=== PATIENT | female | born 1985 | race Caucasian/White ===

== ENCOUNTER 2016-09-27 09:24 | Emergency (ER) | payer BC ==
[2016-09-27] MEDS ORDERED: Sodium Chloride 0.9% 5 ML Syringe FLUSH PRN (09:48)
[2016-09-27] MEDS ORDERED: Sodium Chloride 0.9% 1,000 ML IV ONE (09:48)
--- NOTE | 2016-09-27 10:04 | EDM.PDOC ---
ED HPI GENERAL MEDICAL PROBLEM - General Chief Complaint: PIN PUSHER Problem Stated Complaint: CRAMPING,NAUSEA,DIARRHEA Time Seen by Provider: 09/27/16 09:48 Source of Information: Reports: Patient History Limitations: Reports: No Limitations - History of Present Illness INITIAL COMMENTS - FREE TEXT/NARRATIVE: PT IS 26 WEEKS AND DEVELOPED CRAMPING IN UPPER ABD AT 0600 TODAY. HAS HAD NAUSEA AND DIARRHEA INTERMITTENTLY DURING BUT NO COMPLICATIONS. OB /[employer] IN [place]. DENIES FEVER, TRAUMA, VAG BLEED OR FLUID, BLOOD IN STOOL, OR DYSURIA Onset: Today Onset Date: 09/27/16 Onset Time: 06:00 Location: Reports: Abdomen Quality: Reports: Other (cramping) Improves with: Reports: None Worsens with: Reports: None Associated Symptoms: Reports: Nausea/Vomiting - Related Data Allergies Allergy/AdvReac Type Severity Reaction Status Date / Time No Known Drug Allergies Allergy none Verified 09/27/16 09:49 Home Meds: Home Meds Fish Oil/Thompson-3 Fatty Acids [Fish Oil] 1,000 mg PO DAILY 09/27/16 [History] Lactobacillus Acidophilus [Probiotic] 1 each PO DAILY 09/27/16 [History] Vit W-Ca,Fe,FA(<1 mg) [ Vitamins] 1 each PO DAILY 09/27/16 [ History] Past Medical History HEENT History: Reports: Impaired Vision Genitourinary History: Reports: Other (See Below) Other Genitourinary History: concentrated urine, dehydration Psychiatric History: Reports: Anxiety - Past Surgical History Musculoskeletal Surgical History: Reports: Arthroscopic Knee Social & Family History - Tobacco Use Smoking Status *Q: Never Smoker Second Hand Smoke Exposure: No - Caffeine Use Caffeine Use: Reports: None - Recreational Drug Use Recreational Drug Use: No ED ROS GENERAL - Review of Systems Review Of Systems: ROS reveals no pertinent complaints other than HPI. Constitutional: Reports: No Symptoms HEENT: Reports: No Symptoms Respiratory: Reports: No Symptoms Cardiovascular: Reports: No Symptoms Endocrine: Reports: No Symptoms GI/Abdominal: Reports: Abdominal Pain, Diarrhea, Nausea : Reports: No Symptoms Musculoskeletal: Reports: No Symptoms Skin: Reports: No Symptoms Neurological: Reports: No Symptoms Psychiatric: Reports: No Symptoms Hematologic/Lymphatic: Reports: No Symptoms Immunologic: Reports: No Symptoms ED EXAM - Physical Exam Exam: See Below Exam Limited By: No Limitations General Appearance: Alert, WD/WN, No Apparent Distress Throat/Mouth: Normal Inspection, Normal Oropharynx, No Airway Compromise Neck: Normal Inspection Respiratory/Chest: No Respiratory Distress, Lungs Clear, Normal Breath Sounds, No Accessory Muscle Use, Chest Non-Tender Cardiovascular: Regular Rate, Rhythm, No Murmur GI/Abdominal: Normal Bowel Sounds, Gravid Uterus Heart Tones: Present Heart Tones per Min: 140 Movement: Active Back Exam: Normal Inspection. No: CVA Tenderness (L), CVA Tenderness (R) Extremities: Normal Inspection, No Pedal Edema Neurological: Alert, Oriented, Normal Cognition Psychiatric: Normal Affect, Normal Mood Skin Exam: Warm, Dry, Intact, Normal Color, No Rash Lymphatic: No Adenopathy Course - Orders/Labs/Meds Orders: Active Orders 24 hr Category Date Time Status Peripheral IV Care [RC] . DIRECTED Care 09/27/16 09:48 Ordered COMPREHENSIVE METABOLIC PN,CMP [CHEM] Stat Lab 09/27/16 09:37 Received HCG QUANTITATIVE,SERUM [CHEM] Stat Lab 09/27/16 09:37 Received LIPASE [CHEM] Stat Lab 09/27/16 09:48 Ordered Sodium Chloride 0.9% @ 999 MLS/HR (1000ml) Med 09/27/16 09:48 Ordered Sodium Chloride 0.9% [Normal Saline] 1,000 ml IV .BOLUS Sodium Chloride 0.9% [Syrex Flush] Med 09/27/16 09:48 Ordered 5 ml FLUSH Q8HR PRN Peripheral IV Insertion Adult [OM.PC] Routine Oth 09/27/16 09:48 Ordered Medication Orders Sodium Chloride (Normal Saline) 1,000 mls @ 999 mls/hr IV .BOLUS ONE Stop: 09/27/16 10:48 Sodium Chloride (Syrex Flush) 5 ml FLUSH Q8HR PRN PRN Reason: Keep Vein Open Labs: Laboratory Tests 09/27/16 Range/Units 09:37 WBC 10.9 H (5.0-10.0) 10^3/uL RBC 4.06 (3.80-5.50) 10^6/uL Hgb 11.9 L (12.0-16.0) g/dL Hct 34.6 L (37.0-47.0) % MCV 85.4 (82.0-92.0) fL MCH 29.2 (27.0-31.0) pg MCHC 34.2 (32.0-36.0) g/dL RDW 14.4 (11.5-14.5) % Plt Count 233 (150-300) 10^3/uL MPV 6.6 L (7.4-10.4) fL Neut % (Auto) 82.0 H (50.0-70.0) % Lymph % (Auto) 12.7 L (20.0-40.0) % Kimball % (Auto) 3.9 (2.0-8.0) % Eos % (Auto) 0.9 L (1.0-3.0) % Baso % (Auto) 0.5 (0.0-1.0) % Neut # (Auto) 8.9 H (2.5-7.0) 10^3/uL Lymph # (Auto) 1.4 (1.0-4.0) 10^3/uL Kimball # (Auto) 0.4 (0.1-0.8) 10^3/uL Eos # (Auto) 0.1 (0.1-0.3) 10^3/uL Baso # (Auto) 0.1 (0.0-0.1) 10^3/uL Meds: Medications Generic Name Dose Route Start Last Admin Trade Name Freq PRN Reason Stop Dose Admin Sodium Chloride 1,000 mls @ 999 mls/hr 09/27/16 09:48 Normal Saline IV 09/27/16 10:48 .BOLUS ONE Sodium Chloride 5 ml 09/27/16 09:48 Syrex Flush FLUSH Q8HR PRN Keep Vein Open - Re-Assessments/Exams Free Text/Narrative Re-Assessment/Exam: 09/27/16 10:32 PT AFEBRILE, NONTOXIC APPEARING, CONTRACTIONS RESOLVED, VSS, FHT 130-140 Departure - Departure Time of Disposition: 10:31 Disposition: Home, Self-Care 01 Condition: Good Clinical Impression: Billy Serrano contractions - Discharge Information Instructions: [place] Serrano Contractions, Third Trimester of Additional Instructions: FOLLOW UP WITH PIN PUSHER IN NEXT 2-3 DAYS. RETURN TO ER SOONER IF SYMPTOMS CONTINUE - My Orders Last 24 Hours: My Active Orders 09/27/16 09:37 COMPREHENSIVE METABOLIC PN,CMP [CHEM] Stat HCG QUANTITATIVE,SERUM [CHEM] Stat 09/27/16 09:48 Peripheral IV Care [RC] . DIRECTED LIPASE [CHEM] Stat Sodium Chloride 0.9% @ 999 MLS/HR (1000ml) Sodium Chloride 0.9% [Normal Saline] 1,000 ml IV .BOLUS Sodium Chloride 0.9% [Syrex Flush] 5 ml FLUSH Q8HR PRN Peripheral IV Insertion Adult [OM.PC] Routine - Assessment/Plan Last 24 Hours: My Active Orders 09/27/16 09:37 COMPREHENSIVE METABOLIC PN,CMP [CHEM] Stat HCG QUANTITATIVE,SERUM [CHEM] Stat 09/27/16 09:48 Peripheral IV Care [RC] . DIRECTED LIPASE [CHEM] Stat Sodium Chloride 0.9% @ 999 MLS/HR (1000ml) Sodium Chloride 0.9% [Normal Saline] 1,000 ml IV .BOLUS Sodium Chloride 0.9% [Syrex Flush] 5 ml FLUSH Q8HR PRN Peripheral IV Insertion Adult [OM.PC] Routine Assessment:: Plan: F/U WITH PIN PUSHER
[2016-09-27 10:34] LABS: CHLORIDE,CL 105 mmol/L (98-115); SODIUM,NA 137 mmol/L (136-145)
[2016-09-27 10:36] VITALS: BP 102/66
== END 2016-09-27 11:10 | disposition home or self-care (01) ==
LOC: KA.ED 09:24
DX: O47.02 False labor before 37 completed weeks of gestation, second trimester (principal); Z98.890 Other specified postprocedural states; Z3A.26 26 weeks gestation of pregnancy
CPT/HCPCS: 36415; 80053; 83690; 84702; 85025; 96360; 99284; J7030

== ENCOUNTER 2017-04-23 10:09 | Day surgery (SDC) | payer BC ==
[~2017-04-23 10:09] MED LIST: Lactated Ringers 1,000 ML IV SCH; Sodium Chloride 0.9% 5 ML Syringe FLUSH PRN
[2017-04-23] MEDS ORDERED: Midazolam 1 MG/ML 2 ML SDV ONE (10:27)
[2017-04-23] MEDS ORDERED: fentaNYL 100 MCG/2 ML SDV ONE (10:27)
[2017-04-23] MEDS ORDERED: Propofol 200 MG/20 ML SDV ONE ×2 (10:27→11:12)
--- NOTE | 2017-04-23 10:38 | PCM.PN ---
- General Info Date of Service: 04/23/17 - Review of Systems Systems Review Comment:: 31 y/o female with 3 month history of unexplained diarrhea referred for colonoscopy. She is medically stable to proceed with no recent changes from her h and p. I have discussed the proposed colonoscopy with the patient. Risks such as but not limited to bleeding and GI injury reviewed and she agrees to proceed. - Patient Data Med Orders - Current: Current Medications Lactated Ringer's (Ringers, Lactated) 1,000 mls @ 50 mls/hr IV ASDIRECTED ANDREA Sodium Chloride (Syrex Flush) 5 ml FLUSH Q8HR PRN PRN Reason: Keep Vein Open Discontinued Medications Fentanyl (Sublimaze) Confirm Administered Dose 100 mcg .ROUTE .STK-MED ONE Stop: 04/23/17 10:28 Midazolam HCl (Versed 1 Mg/Ml) Confirm Administered Dose 2 mg .ROUTE .STK-MED ONE Stop: 04/23/17 10:28 Propofol (Diprivan 20 Ml) Confirm Administered Dose 200 mg .ROUTE .STK-MED ONE Stop: 04/23/17 10:28 - Problem List Review Problem List Initiated/Reviewed/Updated: Yes - My Orders Last 24 Hours: My Active Orders 04/22/17 16:56 Resuscitation Status Routine 04/23/17 10:00 Patient to Empty Bladder [RC] ASDIRECTED Peripheral IV Care [RC] . DIRECTED Verify Patient Consent Obtain [RC] ASDIRECTED HCG QUALITATIVE,URINE [URCHEM] Routine Lactated Ringers [Ringers, Lactated] 1,000 ml IV ASDIRECTED Sodium Chloride 0.9% [Syrex Flush] 5 ml FLUSH Q8HR PRN Peripheral IV Insertion Adult [OM.PC] Routine 04/23/17 Breakfast Nothing Per Oral Diet [DIET] - Assessment Assessment:: Diarrhea - Plan Plan:: Colonoscopy.
[2017-04-23 10:42] VITALS: BP 99/70
[2017-04-23] MEDS ORDERED: Midazolam 1 MG/ML 2 ML SDV IV ONE (10:50)
[2017-04-23] MEDS ORDERED: fentaNYL 100 MCG/2 ML SDV IV ONE (10:50)
[2017-04-23] MEDS ORDERED: Propofol 200 MG/20 ML SDV IV ONE (10:50)
--- NOTE | 2017-04-23 11:36 | PCM.OPNOTE ---
- General Post-Op/Procedure Note Date of Surgery/Procedure: 04/23/17 Operative Procedure(s): Colonoscopy with Biopsy Findings: Normal appearing colon and terminal ileum Pre Op Diagnosis: Diarrhea Post-Op Diagnosis: normal colon Anesthesia Technique: MAC Primary Surgeon: Rl Phillips Pathology: biopsies of terminal ileum and colon Output, Urine Amount: 0 EBL in mLs: 3 Complications: None Condition: Good
--- NOTE | 2017-04-23 20:43 | PROC ---
DATE OF PROCEDURE: PHYSICIAN: Rl Phillips MD PRE-PROCEDURE DIAGNOSIS: Diarrhea. POST-PROCEDURE DIAGNOSIS: Diarrhea and normal appearing colon. PROCEDURE PERFORMED: Colonoscopy with biopsy. INDICATIONS FOR SURGERY: This 31-year-old female has a three-month history of unexplained diarrhea. Diagnostic colonoscopy is planned. FINDINGS: The patient's colon and rectum appeared normal. There is no visible signs of inflammation or other mucosal lesions seen. The patient's terminal ilium also appears normal without any inflammation or narrowing. DESCRIPTION OF PROCEDURE: The patient was taken to the operating room. She was given intravenous sedation and with her in the left lateral decubitus position, digital rectal exam was performed showing no rectal masses. The Olympus colonoscope was inserted into the rectum. Retroflexed examination of the rectal canal was performed. The scope was then carefully advanced under direct visualization through the entire length of the colon until the cecum was reached. Cecal acquisition was confirmed by noting the normal internal cecal anatomy including the appendiceal orifice and ileocecal valve. The light was also noted to transilluminate the abdominal wall in the right lower quadrant. The ileocecal valve was cannulated and the terminal ilium examined. Random biopsies of the terminal ilium were taken to rule out celiac disease. The scope was withdrawn back into the colon and then slowly withdrawn allowing re- examination of the colonic segments. Random biopsies of the colonic mucosa were taken as the scope was withdrawn. Once the examination had been completed and with no sign of any complications, the scope was removed and the patient was taken from the operating room in satisfactory condition. ESTIMATED BLOOD LOSS: Less than 5 mL. COMPLICATIONS: None. PROGNOSIS: Good. /[id number]/MODL
== END 2017-04-23 12:50 | disposition home or self-care (01) ==
LOC: KA.SDS 10:09
PROVIDERS: ATTEND Surgery
DX: R19.7 Diarrhea, unspecified (principal); J30.81 Allergic rhinitis due to animal (cat) (dog) hair and dander; Z79.899 Other long term (current) drug therapy
CPT/HCPCS: 45380; 81025; J2250; J2704; J3010; J7120

== ENCOUNTER 2023-10-04 23:50 | Emergency (ER) | payer BC ==
[2023-10-05] MEDS: Lidocaine 1% with EPINEPHrine 1:100,000 20 ML MDV INJECT ONE (00:20)
[2023-10-05] MEDS: Lidocaine 1% with EPINEPHrine 1:100,000 20 ML MDV ONE (00:39)
[2023-10-05] MEDS: Bacitracin/Neomycin/Polymyxin B Oint 0.9 GM U/D Packet ONE (01:10)
[2023-10-05] MEDS: Bacitracin/Neomycin/Polymyxin B Oint 0.9 GM U/D Packet TOP ONE (01:10)
[2023-10-05] MEDS: Diphtheria,Pertussis(Acell),Tetanus Vaccine 0.5 ML Syringe IM ONE (01:19)
[2023-10-05 02:30] VITALS: BP 100/63; PULSE 92
== END 2023-10-05 01:20 | disposition home or self-care (01) ==
LOC: KA.ED 23:50
DX: S61.412A Laceration without foreign body of left hand, initial encounter (principal); Z88.2 Allergy status to sulfonamides; Z91.048 Other nonmedicinal substance allergy status; Z79.899 Other long term (current) drug therapy; Z90.49 Acquired absence of other specified parts of digestive tract; Z23 Encounter for immunization; W26.0XXA Contact with knife, initial encounter
CPT/HCPCS: 12002; 90471; 90715; 99282-25; 99283; J3490